=== PATIENT | female | born 1960 | race Caucasian/White ===

== ENCOUNTER 2018-09-20 03:17 | Emergency (ER) | payer BC ==
[2018-09-20] MEDS ORDERED: MECLIZINE HYDROCHLORIDE 12.5 MG TAB PO ONE (03:28)
[2018-09-20] MEDS ORDERED: SODIUM CHLORIDE 0.9% FLUSH 10 ML SOL IV PRN (03:32)
[2018-09-20] MEDS ORDERED: MECLIZINE HYDROCHLORIDE 12.5 MG TAB ONE (03:33)
[2018-09-20 03:34] VITALS: RESP 18
[2018-09-20 03:49] LABS: BASOPHILS % (AUTO) 1 % (0-3); EOSINOPHILS % (AUTO) 1 % (0-9); HEMATOCRIT 38 % (35-47); HEMOGLOBIN 12.9 gm/dl (12.0-15.5); LYMPHOCYTES % (AUTO) 38.3 % (10-50); MEAN CORPUSCULAR HEMOGLOBIN 30.3 pg (27.0-32.0); MEAN CORPUSCULAR HGB CONC 33.9 gm/dl (32.0-36.0); MEAN CORPUSCULAR VOLUME 89 fL (81-99); MONOCYTES % (AUTO) 5.1 % (0-12); NEUTROPHILS % (AUTO) 54.6 % (37-80)
[2018-09-20 04:08] LABS: ALBUMIN 3.8 gm/dl (3.4-5.0); ALCOHOL 0.083 gm/dl (0.000-0.08); ALKALINE PHOSPHATASE 65 IU/L (46-116); ALT 28 IU/L (14-63); AST 20 IU/L (15-37); BILIRUBIN,TOTAL 0.3 mg/dl (0.2-1.0); BLOOD UREA NITROGEN 13 mg/dl (7-18); CALCIUM 8.5 mg/dl (8.5-10.1); CARBON DIOXIDE 25.9 mEq/L (21-32); CHLORIDE 97 mMol/L (98-107); CREATININE 0.75 mg/dl (0.60-1.00); GLUCOSE 127 mg/dl (74-106); POTASSIUM 3.2 mMol/L (3.5-5.1); SODIUM 133 mMol/L (136-145); TOTAL PROTEIN 7.3 gm/dl (6.4-8.2); TROP I < 0.017 ng/ml (0.000-0.056)
[2018-09-20] MEDS ORDERED: POTASSIUM CHLORIDE 10 MEQ TER PO ONE (04:23)
[2018-09-20] MEDS ORDERED: SODIUM CHLORIDE 0.9% 1000ML 1,000 ML IV ONE (04:23)
[2018-09-20] MEDS ORDERED: POTASSIUM CHLORIDE 10 MEQ TER ONE (04:24)
[2018-09-20 05:56] LABS: POTASSIUM 3.8 mMol/L (3.5-5.1)
[2018-09-20 06:47] VITALS: BP 128/77; PULSE 100; TEMP 98; O2SAT 96
== END 2018-09-20 06:28 | disposition home or self-care (01) ==
LOC: ED 03:17
DX: R55 Syncope and collapse (principal); R11.2 Nausea with vomiting, unspecified; E87.1 Hypo-osmolality and hyponatremia; Y90.4 Blood alcohol level of 80-99 mg/100 ml
CPT/HCPCS: 80053; 80307; 84132; 84295; 84484; 85025; 85378; 93005; 96365; 99284; 99285; A9270-GY